=== PATIENT | female | born 1985 | race Caucasian/White ===

== ENCOUNTER 2018-09-13 17:23 | Emergency (ER) | payer SELFPAY ==
[~2018-09-13] VITALS: Ht 165.1 cm; Wt 60.3 kg
[2018-09-13 17:47] VITALS: BP 120/56
[2018-09-13] MEDS ORDERED: SILVER SULFADIAZINE CREAM 25 GM TUBE ONE (18:55)
[2018-09-13] MEDS ORDERED: SILVER SULFADIAZINE CREAM 25 GM TUBE TP ONE (19:00)
== END 2018-09-13 19:12 | disposition home or self-care (01) ==
LOC: ER 17:23
DX: T24.001A Burn of unspecified degree of unspecified site of right lower limb, except ankle and foot, initial encounter (principal); L03.115 Cellulitis of right lower limb; Z60.2 Problems related to living alone; X16.XXXA Contact with hot heating appliances, radiators and pipes, initial encounter; Y93.89 Activity, other specified; Y92.89 Other specified places as the place of occurrence of the external cause; Y99.8 Other external cause status